=== PATIENT | male | born 1985 | race Caucasian/White ===

== ENCOUNTER 2023-04-09 18:49 | Emergency (ER) | payer SELFPAY ==
[~2023-04-09] VITALS: Ht 170.2 cm; Wt 79.2 kg
[2023-04-09 19:15] VITALS: BP 124/77; PULSE 72; RESP 16; TEMP 97.4; O2SAT 100
== END 2023-04-09 20:51 | disposition left against medical advice (07) ==
LOC: ER 18:50
DX: Z76.0 Encounter for issue of repeat prescription (principal); Z53.21 Procedure and treatment not carried out due to patient leaving prior to being seen by health care provider
CPT/HCPCS: 99281